=== PATIENT | male | born 1995 | race Caucasian/White ===

== ENCOUNTER 2016-09-17 18:59 | Emergency (ER) | payer OTHER ==
[~2016-09-17] VITALS: Ht 182.9 cm; Wt 83.9 kg
[2016-09-17 19:00] VITALS: BP 123/69
[2016-09-17] MEDS ORDERED: TYLETAB14 PO (20:06)
[2016-09-17] MEDS ORDERED: ROBA500T PO (20:06)
[2016-09-17] MEDS ORDERED: MOTR200T44 PO (20:06)
== END 2016-09-17 20:26 | disposition home or self-care (01) ==
LOC: M ED 19:53
DX: M43.6 Torticollis (principal); Z88.8 Allergy status to other drugs, medicaments and biological substances